=== PATIENT | male | born 1960 | race Caucasian/White ===

== ENCOUNTER 2016-06-03 10:55 | Outpatient (CLI) | payer MEDICAID ==
[~2016-06-03] VITALS: Ht 172.7 cm; Wt 72.7 kg
--- NOTE | ~2016-06-03 | HEMODYNAMI ---
PATIENT:DARWIN KNOWLES MEDICAL RECORD: [id number] : 62 LOCATION:D.CAT ADMISSION DATE: 06/03/16 Generatedon:06/03/201613:28 Patient name: DARWIN KNOWLES Patient #: [id number] SSN: : 1960 Date of study: 06/03/2016 Page: Of Hemodynamic Procedure Report Patient Data Patient Demographics Procedure consent was obtained First Name: DARWIN Gender: Male Last Name: BENSON : 1960 Middle Initial: W Age: 56 year(s) Patient #: [id number] Race: Unknown Additional ID: [id number] Contact details Address: [address] [place] [address] State: [place] City: [place] Zip code: [address] Past Medical History Allergies: No known allergies Admission Admission Data Admission Date: 06/03/2016 Admission Time: 10:55 Height (in.): 68 BSA: 1.86 (m2) Height (cm.): 172.72 BMI: 24.33 (kg/m2) Weight (lbs.): 160 Weight (kg.): 72.57 Lab Results Lab Result Date: 06/03/2016 Lab Result Time: 11:30 Biochemistry Name Units Result Min Max BUN mg/dl 10 --(-*--)-- 7 18 Creatinine mg/dl 0.9 --(-*--)-- 0.6 1.3 CBC Name Units Result Min Max Hematocrit % 47.5 --(-*--)-- 42 54 Hemoglobin g/dl 16.1 --(--*-)-- 13.5 17.5 Procedure Procedure Types Cath Procedure Diagnostic Procedure [facility] w/Coronaries Miscellaneous Procedures Moderate Sedation up to 30 minutes Procedure Description Procedure Date Procedure Date: 06/03/2016 Procedure Start Time: 13:15 Procedure End Time: 13:26 Procedure Staff Name Function Abida Lal RT Scrub Aden Del Toro RN Nurse Kimo Reis MD Performing Physician Jeff Ochoa RT Monitor Procedure Data Cath Procedure Fluoroscopy Diagnostic fluoroscopy Total fluoroscopy Time: 2.5 time: 2.5 min min Diagnostic fluoroscopy Total fluoroscopy dose: 406 dose: 406 mGy mGy Contrast Material Contrast Material Type Amount (ml) Isovue 300 61 Entry Location Entry Primary Successful Side Size Upsize Upsize Entry Closure Cobb ccessful Closure Location (Fr) 1 (Fr) 2 (Fr) Remarks Device Remarks Radial Right 6 Fr Mechanical artery Short Compression Estimated blood loss: 5 ml Diagnostic catheters Device Type Used For End Catheter Placement Terumo 5Fr Froylan 110cm Procedure catheter Procedure Complications No complications Procedure Medications Medication Administration Route Dosage Oxygen NC 2 l/min Heparin Flush Bag added to field 2 bags (1000units/500ml NS) 0.9% NaCl I.V. 100 ml/hr Radial Cocktail added to field 1 syringe (Verapomil 2mg/Nitro 400mcg/Heparin 1500units) Fentanyl I.V. 50 mcg Versed I.V. 1 mg Fentanyl I.V. 50 mcg Versed I.V. 1 mg Fentanyl I.V. 50 mcg Versed I.V. 1 mg Fentanyl I.V. 50 mcg Versed I.V. 1 mg Fentanyl I.V. 50 mcg Radial Cocktail I.A. 1 syringe (Verapomil 2mg/Nitro 400mcg/Heparin 1500units) Fentanyl I.V. 50 mcg Hemodynamics Rest BSA: 1.86 (m2) HGB: 16.1 (g/dl) O2 Consumption: Estimated: 209.25 (ml/min) O2 Co nsumption indexed: Estimated:112.5 (ml/min/m) Heart Rate: 54 (bpm) Pressure Samples Time Site Value (mmHg) Purpose Heart Use Rate(bpm) 13:17 LV 105/-8,9 Snapshot 54 13:18 LV 95/-7,4 Pullback 55 13:18 AO 73/48(62) Pullback 55 Gradients Valve Time Site 1 Site 2 Mean SEP/DFP Peak To Heart Use (mmHg) (sec/min) Peak Rate (mmHg) (bpm) Aortic 13:18 LV AO 10 15 22 55 95/-7,4 73/48(62) Calculations Valve P-P Mean Valve Index Valve Source Name Gradient Area Flow (cm2) Aortic 22 10 22 10 Snapshots Pre Cath Intra NCS Post Cath Vital Signs Time Heart Resp SPO2 NIBP (mmHg) Rhythm Pain Sedation Rate (ipm) (%) Status Level (bpm) 12:57:50 54 17 98 143/87(109) NSR 0 (11) 10(A) , No pain 13:02:00 51 18 96 143/92(105) NSR 0 (11) 10(A) , No pain 13:06:10 56 18 93 149/91(106) NSR 0 (11) 10(A) , No pain 13:10:24 52 17 95 130/86(96) NSR 0 (11) 10(A) , No pain 13:14:30 55 18 94 125/87(98) NSR 0 (11) 9(A) , No pain 13:18:40 56 18 95 96/71(80) NSR 0 (11) 9(A) , No pain 13:23:18 57 17 95 120/90(110) NSR 0 (11) 9(A) , No pain Medications Time Medication Route Dose Verified Delivered Reason Notes Effectiveness by by 12:57:33 Oxygen NC 2 l/min Aden Aden Per Alverto Del Toro RN physician RN 12:57:44 Heparin Flush added 2 bags Aden Aden used for Bag to Alverto Del Toro design printer balloon (1000units/500ml field RN NS) 12:57:53 0.9% NaCl I.V. 100 Aden Aden Per ml/hr Alverto Del Toro RN physician RN 12:58:02 Radial Cocktail added 1 Aden Aden used for (Verapomil to syringe Alverto Del Toro design printer balloon 2mg/Nitro field RN 400mcg/Hepari 13:07:45 Fentanyl I.V. 50 mcg Aden Aden for sedation Alverto Del Toro RN RN 13:07:51 Versed I.V. 1 mg Aden Aden for sedation Alverto Del Toro RN RN 13:08:39 Fentanyl I.V. 50 mcg Aden Aden for sedation Alverto Del Toro RN RN 13:08:45 Versed I.V. 1 mg Aden Aden for sedation Alverto Del Toro RN RN 13:12:24 Fentanyl I.V. 50 mcg Aden Aden for sedation Alverto Del Toro RN RN 13:12:27 Versed I.V. 1 mg Aden Aden for sedation Alverto Del Toro RN RN 13:14:00 Fentanyl I.V. 50 mcg Aden Aden for sedation Alverto Del Toro RN RN 13:14:03 Versed I.V. 1 mg Aden Samaniego for sedation Alverto Del Toro RN RN 13:16:18 Fentanyl I.V. 50 mcg Aden Samaniego for sedation Alverto Del Toro RN RN 13:17:09 Radial Cocktail I.A. 1 Aden Malin for (Verapomil syringe Alverto Reis MD vasodilation 2mg/Nitro RN 400mcg/Hepari 13:18:09 Fentanyl I.V. 50 mcg Aden Samaniego for sedation Alverto Del Toro RN bridge crane operator Log Time Note 12:32:32 Aden Del Toro RN sent for patient. Start room use. 12:49:05 Time tracking: Regular hours 12:49:09 Plan of Care:Hemodynamics will remain stable., Cardiac rhythm will remain stable., Comfort level will be maintained., Respiratory function will remain adequate., Patient/ family verbilizes understanding of procedure., Procedure tolerated without complication., Recovers from procedure without complications.. 12:51:05 Patient received from Pre/Post Procedure Room to [facility] 2 Alert and oriented. Tansferred to table in Supine position. 12:51:06 Warm blankets applied, and arely hugger turned on for patient comfort. 12:51:07 Correct patient and procedure confirmed by team. 12:51:08 ECG and BP/O2 sat monitors applied to patient. 12:51:08 Signed procedure consent form obtained from patient. 12:51:09 Full Disclosure recording started 12:56:50 Vital chart was started 12:57:33 Oxygen 2 l/min NC was administered by Aden Del Toro RN; Per physician; 12:57:44 Heparin Flush Bag (1000units/500ml NS) 2 bags added to field was administered by Aden Del Toro RN; used for procedure; 12:57:53 0.9% NaCl 100 ml/hr I.V. was administered by Aden Del Toro RN; Per physician; 12:58:02 Radial Cocktail (Verapomil 2mg/Nitro 400mcg/Heparin 1500units) 1 syringe added to field was administered by Aden Del Toro RN; used for procedure; 13:04:23 Baseline sample Acquired. 13:04:26 Rhythm: sinus rhythm 13:04:36 H&P Date Dictated: 05/27/2016 Within 30 days and on chart., H&P Addendum completed by physician on day of procedure. (MUST COMPLETE FOR ALL OUTPATIENTS). 13:04:37 Pre-op teaching completed and patient verbalized understanding. 13:04:37 Pre-procedure instructions explained to patient. 13:04:40 Family in waiting room. 13:04:42 Patient NPO since Midnight. 13:04:47 Patient allergic to No known allergies 13:04:49 Is the patient allergic to Iodine/contrast media? No. 13:04:54 Is patient on blood thinner?No 13:04:55 Patient diabetic? No. 13:05:34 Snore? Yes 13:05:34 Previous problem with sedation/anesthesia? No ? 13:05:35 Sleep apnea? No 13:05:36 Deviated septum? No 13:05:37 Sticks out tongue? Yes 13:05:37 Opens mouth fully? Yes 13:05:39 Airway obstruction? No ? 13:05:41 Dentures? Yes OUT 13:05:46 Modified Jimbo's test Ulnar < 7 seconds 13:05:48 Patient pain scale 0/10 ?. 13:05:58 IV patent on arrival in left forearm with 0.9% NaCl at [facility]. 13:06:36 Lab Result : Hemoglobin 16.1 g/dl 13:06:36 Lab Result : Hematocrit 47.5 % 13:06:36 Lab Result : BUN 10 mg/dl 13:06:36 Lab Result : Creatinine 0.9 mg/dl 13:06:39 Lab results completed and on chart. 13:06:41 Alarms reviewed by R. N. 13:06:41 Right Radial & Right Groin area was prepped with chlora-prep and draped in sterile fashion 13:06:42 Sharps counted by scrub and verified by R.N. 13:06:44 Use device set Radial Dx 13:06:45 Tegaderm 4 x 4 opened to sterile field. 13:06:45 MBrace Wrist Support opened to sterile field. 13:06:46 Acist Hand Control opened to sterile field. 13:06:47 Acist Manifold opened to sterile field. 13:06:49 Medline Cath Pack opened to sterile field. 13:06:49 Acist Syringe opened to sterile field. 13:06:50 Cook 21G 4cm Radial Needle opened to sterile field. 13:06:50 Terumo 6Fr Slender Glidesheath opened to sterile field. 13:06:50 Bag Decanter opened to sterile field. 13:06:51 St Samson 260cm J .035 wire opened to sterile field. 13:06:56 Final Timeout: patient, procedure, and site verified with staff and physician. All members of the team are in agreement. 13::56 --------ALL STOP TIME OUT------ 13::56 Physician arrived 13:06:58 Right Radial & Right Groin site verified by team. 13:07:01 Physical assessment completed. ASA score P 2 - A patient with mild systemic disease as per Kimo Reis MD. 13:07:10 Sedation plan: IV Moderate Sedation Versed, Fentanyl 13:07:20 Patient Weight : 72.57 kg 13:07:45 Fentanyl 50 mcg I.V. was administered by Aden Del Toro RN; for sedation; 13:07:48 Patient Height : 172.72 cm 13:07:51 Versed 1 mg I.V. was administered by Aden Del Toro RN; for sedation; 13:08:39 Fentanyl 50 mcg I.V. was administered by Aden Del Toro RN; for sedation; 13:08:45 Versed 1 mg I.V. was administered by Aden Del Toro RN; for sedation; 13:12:24 Fentanyl 50 mcg I.V. was administered by Aden Del Toro RN; for sedation; 13:12:27 Versed 1 mg I.V. was administered by Aden Del Toro RN; for sedation; 13:13:08 Procedure started. 13:13:14 Zero performed for pressure channel P1 13:14:00 Fentanyl 50 mcg I.V. was administered by Aden Del Toro RN; for sedation; 13:14:03 Versed 1 mg I.V. was administered by Aden Del Toro RN; for sedation; 13:15:28 Local anesthetic to right radial artery with Lidocaine 2% by Kimo Reis MD.INITIAL ACCESS ONLY 13:15:35 A 6 Fr Short sheath was inserted into the Right Radial artery 13:16:18 Fentanyl 50 mcg I.V. was administered by Aden Del Toro RN; for sedation; 13:16:20 A Terumo 5Fr Froylan 110cm catheter was advanced over the wire and used for Procedure. 13:17:09 Radial Cocktail (Verapomil 2mg/Nitro 400mcg/Heparin 1500units) 1 syringe I.A. was administered by Kimo Reis MD; for vasodilation; 13:17:38 LV gram done using QUIROGA 13:17:41 Injector settings: Ml/sec: 5, Volume: 15, 13:17:51 EF : 50 % 13:18:09 Fentanyl 50 mcg I.V. was administered by Aden Del Toro RN; for sedation; 13:19:07 LCA angiography performed. 13:20:28 RCA angiography performed. 13:21:02 Catheter removed. 13:21:59 Sheath removed intact; hemostasis achieved with Mechanical Compression to the Right Radial artery. 13:22:00 Procedure ended.(Physican Out) 13:22:42 Fluoroscopy time 02.50 minutes. 13:22:45 Fluoroscopy dose: 406 mGy 13:22:45 Flurop Dose total: 406 13:22:50 Contrast amount:Isovue 300 61ml. 13:22:52 Sharps counted by scrub and verified by R.N. 13:23:03 TR band inflated with 12cc of air. 13:23:04 Insertion/operative site no bleeding no hematoma. 13:23:10 Post right radial artery:stable, clean and dry 13:23:11 Post Procedure Pulses reassessed and unchanged 13:23:14 Post-procedure physical assessment completed. ASA score P 2 - A patient with mild systemic disease as per Kimo Reis MD. 13:23:16 Post procedure rhythm: unchanged. 13:23:19 Estimated blood loss: 5 ml 13:23:22 Post procedure instruction explained to patient.Patient verbalizes understanding. 13:23:23 Patient needs reinforcement of post procedure teaching. 13:24:32 Procedure type changed to Cath procedure, Diagnostic procedure, LHC, LHC w/Coronaries, Miscellaneous Procedures, Moderate Sedation up to 30 minutes 13:26:02 Procedure and supply charges have been captured, reviewed, submitted and are correct. 13:26:05 Procedure Complication : No complications 13:26:08 Vital chart was stopped 13:26:10 See physician's report for complete and final results. 13:26:11 Report given to Pre/Post Procedure Room. 13:26:14 Patient transfered to Pre/Post Procedure Room with Stretcher. 13:26:16 Full Disclosure recording stopped 13:26:16 Procedure ended. 13:26:32 End room use (Document Last) Device Usage Item Name Manufacture Quantity Catalog Hospital Part Current Minimal Lot# / Number Charge Number Stock Stock Serial# Code MBpeggy Villatoro 140-0250-00 [id number] 35889 820658 5 Wrist Vascular Support Dynamics Tegaderm 4 3M 1 [id number] [id number] 630778 5 x 4 Acist Hand Acist 1 80020 036832 561753 292066 5 Control [employer] Inc Acist Acist 1 74708 485947 165061 270198 5 Manifold Medical [employer] Inc Acist Acist 1 24352 251898 826128 525765 20 Syringe Medical Systems Inc Medline Cardinal 1 [id number] 227306 25497 040677 5 Cath Pack Health Bag Microtek 1 2002S 206487 87752 423401 5 DecThryve [employer] Inc. Terumo 6Fr Terumo 1 [id number] 998938 750133 375273 [address] St Samson 1 347600 379709 874754 333220 30 260cm J .035 wire Terumo 5Fr Terumo 1 62-8401 788666 693147 850301 5 Froylan 110cm catheter Cook 21G Cook Medical 1 [id number] 038069 953345 902571 5 4cm Radial Needle Signature Audit [place] Stage Time Signature Unsigned Intra-Procedure 06/03/2016 Jeff Ochoa 1:28:09 PM RT(R) Signatures Monitor : Jeff Ochoa RT Signature : Date : Time : [facility] [address] [place], [place] [address]
[2016-06-03] MEDS ORDERED: NORVASC10 MG PO (11:10)
[2016-06-03] MEDS ORDERED: TYLENOL W/CODEI1 TAB PO (11:11)
[2016-06-03] MEDS ORDERED: CELEXA20 MG PO (11:12)
[2016-06-03 11:18] VITALS: BP 155/92; Ht 172.7 cm; Wt 72.7 kg
[2016-06-03 11:50] LABS: BASOPHILS 0.7 % (0-2); EOSINOPHILS 1.2 % (0-7); HEMATOCRIT 47.5 % (42.0-54.0); HEMOGLOBIN 16.1 g/dL (13.5-17.5); IMMATURE GRANULOCYTES 0.1 % (0-5); LYMPHOCYTES 26.2 % (15-50); MCHC 33.9 g/dL (31.0-37.0); MCV 91.3 fL (80.0-100.0); MEAN PLATELET VOLUME 9.7 fL (7.4-10.4); MONOCYTES 10.6 % (2-11); NEUTROPHILS 61.2 % (40-80); PLATELET COUNT 217 10x3/uL (130-400); WBC 6.7 10x3/uL (4.8-10.8)
[2016-06-03 12:00] LABS: CALC OSMOLALITY 277 mosm/kg (275-300); CARBON DIOXIDE 23.4 mmol/L (21.0-32.0); CHLORIDE - SERUM 105 mmol/L (98-107); CREATININE - SERUM 0.9 mg/dL (0.6-1.3); GLUCOSE 94 mg/dL (74-106); SODIUM 140 mmol/L (136-145); UREA NITROGEN 10 mg/dL (7-18); eGFR NON AFRICAN AMERICAN > 90 mL/min (90-120)
--- NOTE | 2016-06-03 14:40 | NUR ---
1400-RESTING, TRACELET INTACT, NO BLEEDING
--- NOTE | 2016-06-03 14:43 | NUR ---
1430-NO CHANGES NOTED, CONT TO REST
--- NOTE | 2016-06-03 16:34 | NUR ---
1655-IV D'C WITH TIP INTACT, WRITTEN AND VERBAL INSTRUCTIONS GIVEN TO PT AND FAMILY, QUESTIONS ANSWERED. D'C HOME
--- NOTE | 2016-06-11 10:59 | OP ---
PATIENT NAME: DARWIN KNOWLES MEDICAL RECORD: [id number] :62 LOCATION:D.CAT ADMISSION DATE: SURGEON: EUSEBIO PURVIS M.D. DATE OF OPERATION: 06/03/2016 REFERRING PHYSICIAN: [facility], [place]. PROCEDURES PERFORMED: 1. Selective coronary angiography. 2. Left heart catheterization with ventriculogram. INDICATION: A 56-year-old gentleman with multiple risk factors for coronary artery disease, presents with accelerating angina. EQUIPMENT USED: A 5-Azeri Froylan catheter. TECHNIQUE: A 6-Azeri sheath was inserted in retrograde fashion in the right radial artery. Next, selective coronary angiography was performed in standard views using 5-Azeri Froylan catheter. Left heart catheterization was performed using a Froylan catheter as well. CORONARY ANATOMY: 1. Left main: Left main trunk is moderate in caliber. It gives rise to the LAD and circumflex. There is no obstruction. 2. LAD: This is a moderate-caliber vessel extending to the apex. It is a smooth-walled vessel. 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 Otherwise, the vessel is angiographically normal. 3. Circumflex: This vessel is small in caliber. It supplies a small lateral branch proximal segment. The circumflex and lateral branch are angiographically normal. 4. Right coronary: This vessel is large in caliber and dominant. It gives rise to the PDA and large posterolateral branch in distal segment. This vessel is smooth-walled and angiographically normal. 5. Left ventricle: Left ventricle is normal in size. No wall motion abnormalities are seen. Its ejection fraction is lower limits of normal around 50%. IMPRESSION: 1. Normal coronary arteries. 2. Normal left ventricular function. RECOMMENDATIONS: I suspect his chest discomfort was noncardiac in origin. TRANSINT:[id number] Voice Confirmation ID: [id number] DOCUMENT ID: [id number] EUSEBIO PURVIS M.D. at 1059 CC: [id number] DICTATION DATE: 06/03/16 1328 MACHINERY CLEANER: 06/03/16 1935 DEP CLI 06/03/16 [facility] [address] [place] [address]
== END 2016-06-03 16:00 | disposition home or self-care (01) ==
LOC: D.CATH 10:55
PROVIDERS: Internal Medicine Cardiovascular Disease
DX: I20.9 Angina pectoris, unspecified (principal); I10 Essential (primary) hypertension; R07.9 Chest pain, unspecified; F17.200 Nicotine dependence, unspecified, uncomplicated; R94.31 Abnormal electrocardiogram [ECG] [EKG]; Z01.812 Encounter for preprocedural laboratory examination